=== PATIENT | male | born 1960 | race Caucasian/White ===

== ENCOUNTER 2018-10-19 17:59 | Emergency (ER) | payer OTHER ==
[~2018-10-19] VITALS: Ht 188 cm; Wt 83.9 kg
[~2018-10-19 17:59] MED LIST: ATARAX25 MG PO; NORFLEX100MG; ZYRTEC10 M3 PO
[2018-10-19] MEDS ORDERED: LOSARTAN POTASS25 MG (18:06)
== END 2018-10-19 20:19 | disposition home or self-care (01) ==
LOC: ER 17:59
DX: M72.2 Plantar fascial fibromatosis (principal); M79.672 Pain in left foot